=== PATIENT | female | born 1985 | race Caucasian/White ===

== ENCOUNTER 2017-07-27 16:10 | Emergency (ER) | payer OTHER ==
[~2017-07-27] VITALS: Ht 170.2 cm; Wt 84.1 kg
[2017-07-27 16:17] VITALS: TEMP 98.3
[2017-07-27] MEDS ORDERED: VALIUM 5MG T5 MG/TAB PO (17:05)
[2017-07-27 17:16] LABS: COLLECTION METHOD CLEAN CATCH
[2017-07-27 17:22] LABS: MUCOUS Present /lpf; PH 6 (5-8); URINE APPEARANCE Clear; URINE BACTERIA Rare /hpf; URINE BILIRUBIN Negative (NEGATIVE); URINE BLOOD Negative (NEGATIVE); URINE COLOR Yellow; URINE GLUCOSE Negative (NEGATIVE); URINE KETONE Negative (NEGATIVE); URINE LEUKOCYTE ESTERASE Negative (NEGATIVE); URINE NITRATE Negative (NEGATIVE); URINE PROTEIN(semi-quant) Negative (NEGATIVE); URINE RBC 0-2 /hpf; URINE UROBILINOGEN Negative (NEGATIVE)
[2017-07-27 18:19] VITALS: BP 116/83; PULSE 64
== END 2017-07-27 18:15 | disposition home or self-care (01) ==
LOC: COL.ER 16:10
PROVIDERS: Emergency Medicine
DX: H83.01 Labyrinthitis, right ear (principal)

== ENCOUNTER 2018-12-02 09:48 | Inpatient (IN) | payer OTHER ==
[2018-12-02] VITALS (48 sets, daily range): BP systolic 95–135; BP diastolic 53–87; PULSE 61–85; TEMP 97.7–98.6
[~2018-12-02] VITALS: Ht 167.6 cm; Wt 98.2 kg
[~2018-12-02 09:48] MED LIST: VALIUM 5MG T5 MG/TAB PO
--- NOTE | 2018-12-02 10:00 | NUR ---
Pt arrives on unit ambulatory with spouse. States possible SROM of light pink fluid at 0700. Pt has changed pads multiple times. Reports GFM with occasional ctx. Changed into clean gown. EFM and toco applied. VSS. Amniotest negative with SVE. SVE cl/-3 with yellow discharge noted on glove. Amniotest swiped along labia. Minimal color changed noted. Amniotest swiped along pad. Minimal color change noted. Admission assessment completed. Dr. Finnegan contacted. Pt updated on POC. Safety reviewed. No questions or concerns at this time.
[2018-12-02] MEDS ORDERED: PRENATAL MVI (10:24)
--- NOTE | 2018-12-02 10:26 | NUR ---
Pt up to birthing ball for ambulation. Reactive FHR strip obtained. 1106-Pt back to monitors.
[2018-12-02 12:11] LABS: BASO % 0.4 % (0.0-2.0); EOS # 0.1 (0.0-0.7); EOS % 1.3 % (0-4.0); GRAN % 76.5 % (42.2-75.2); HEMOGLOBIN 12.3 g/dl (12.5-16.0); LYMPH # 1.3 (1.2-3.4); LYMPH % 16.1 % (20.0-51.0); MEAN CELL VOLUME 92 fl (80.0-100.0); MEAN CORPUSCULAR HEMOGLOBIN 32 pg (27.0-31.0); MEAN CORPUSCULAR HGB CONC 35 g/dl (33.0-37.0); MEAN PLATELET VOLUME 9.7 fl (7.4-10.4); MONO # 0.4 (0.1-0.6); MONO % 5.1 % (1.7-9.3); PLATELET COUNT 200 K/mm3 (130-400); REDCELL DISTRIBUTION WIDTH-CV 12.9 % (11.5-14.5)
--- NOTE | 2018-12-02 18:15 | NUR ---
Dr. Jordan at the bedside. FHR tracing reviewed. SVE per Dr. Jordan -/-3. IUPC placed. Abdominal US done to verify vertex position.
--- NOTE | 2018-12-02 19:15 | NUR ---
FHR tracing reviewed with Dr. Jrodan. Orders to decrease pitocin to 20ml/hr received.
--- NOTE | 2018-12-02 22:54 | NUR ---
FHR decel down to 90's with slow return to baseline after peanut ball removed and position changed. SVE by this RN /. Information reviewed with Dr. Jordan.
[2018-12-03] VITALS (39 sets, daily range): BP systolic 95–154; BP diastolic 53–89; PULSE 62–93; TEMP 98.2–99.1
--- NOTE | 2018-12-03 00:22 | NUR ---
Antonia, DISTRICT HOME ECONOMICS AGENT at the bedside for epidural bolus. See anesthesia record for details.
--- NOTE | 2018-12-03 00:33 | NUR ---
0033- FHR decel to 90's. Position changed to left lateral. 0334- SVE by this RN /-1. Additional staff called to the bedside for assistance. 0335- Pitocin off. 0336- Position changed to right lateral. 0337- O2 10L via face mask started. 0040- SVE by this RN 100/0. FHR slow return to baseline.
--- NOTE | 2018-12-03 01:38 | NUR ---
O2 via face mask removed.
--- NOTE | 2018-12-03 01:40 | NUR ---
0140- Pt reports feeling lots of pressure with contractions. SVE by this RN /0. 0154- Weaver removed without complications. 0207- Pushing instructions reviewed and pushing started. .
--- NOTE | 2018-12-03 02:13 | NUR ---
IUPC removed with pushing and without complications. External toco monitor started.
--- NOTE | 2018-12-03 03:46 | NUR ---
Pitocin infusion restarted per orders.
--- NOTE | 2018-12-03 04:39 | NUR ---
4245- Spoke with Dr. Jordan for an update. We reviewed FHR tracing, ctx pattern and pushing. Dr. Jordan on his way in to evaluate. 2714- Dr. Jordan at the bedside. SVE and plan of care discussed with pt and at the bedside. 1938- C/S called. Anesthesia notified. 2374- Pt off EFM to OR via bed.
[2018-12-03] MEDS ORDERED: PERCOCET 325 MG1 TA2 PO (21:36)
[2018-12-03] MEDS ORDERED: MOTRIN 800800 MG/TAB PO (21:36)
[2018-12-04 01:25] VITALS: BP 112/61; PULSE 99; TEMP 97.7
[2018-12-04 07:45] VITALS: BP 115/73; PULSE 88; TEMP 97.7
--- NOTE | 2018-12-04 09:01 | NUR ---
Initial visit; Parents thanked Environmental Health Technician for offering congratulations and God's blessings for the of their daughter. Environmental Health Technician thanked family for choosing [facility].
[2018-12-04 16:30] VITALS: BP 111/66; PULSE 93; TEMP 97.6
[2018-12-04 23:05] VITALS: BP 118/66; PULSE 85; TEMP 97.9
--- NOTE | 2018-12-05 06:30 | NUR ---
Rests in bed, alert. Baby brought into room. Denies any needs at this time.
[2018-12-05 08:00] VITALS: BP 116/63; PULSE 83; TEMP 97.4
--- NOTE | 2018-12-05 08:00 | NUR ---
Rests in bed, alert. Holds baby. Denies any needs at this time. Questions asked and answered.
--- NOTE | 2018-12-05 10:00 | NUR ---
Rests in bed, alert. Breastfeeds baby. Ibuprofen 800 mg given as ordered.
--- NOTE | 2018-12-05 12:00 | NUR ---
Rests in bed, alert. Visiting with friend. Discharge instructions given. Verbalizes understanding.
== END 2018-12-05 12:30 | disposition home or self-care (01) | DRG 788 ==
LOC: LDRO 09:48 → LDR 10:00 → LDRO 10:01 → LDR 10:02 → LDRO 10:59 → LDR 10:59 → OB 12-03 07:30
PROVIDERS: ADMIT Obstetrics & Gynecology
PROC: 10D00Z1 Extraction of Products of Conception, Low, Open Approach (ICD-10-PCS; principal; 2018-12-03)
PROC: 0UQ90ZZ Repair Uterus, Open Approach (ICD-10-PCS; 2018-12-03)
DX: O33.9 Maternal care for disproportion, unspecified (principal); Z3A.38 38 weeks gestation of pregnancy; Z37.0 Single live birth; O99.02 Anemia complicating childbirth; D64.9 Anemia, unspecified; N99.81 Other intraoperative complications of genitourinary system; O75.89 Other specified complications of labor and delivery; O99.824 Streptococcus B carrier state complicating childbirth; O99.214 Obesity complicating childbirth; E66.9 Obesity, unspecified; O62.1 Secondary uterine inertia
CPT/HCPCS: J0690; J1580; J2175; J2250; J2370; J2400; J2405; J2540; J2590; J2795; J3010; J7120

== ENCOUNTER → 2018-12-24 | Outpatient (CLI) | payer OTHER ==
[~2018-12-24] MED LIST changes: +MOTRIN 800800 MG/TAB PO; +PERCOCET 325 MG1 TA2 PO; +PRENATAL MVI
--- NOTE | 2018-12-24 12:06 | NUR ---
Susan Bright into clinic with 3 week old Paolo for breast feeding evaluation and weight check. Paolo was born on [birth year] via c/s with a weight of 7#4 oz (3280 g). Breast feeding has complicated by the use of a breast shield on the left breast and Susan developing mastitis on the left breast last week. Susan states they stopped using the shield within the first week and states she no longer has symptoms of mastitis since starting abx treatment on 12/20/18. Susan states she feels like her left breast is not producing well as she will pump 1.5 oz from right breat after feeds and only 0.5 from the left at the most. Susan state she is pumping 1-2 times per day. Susan states Paolo is eating "all the time" and reports diapers to be WNL. 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 Prefeed weight was 7#2 oz and Paolo gained 2 oz after eating. Today, Paolo's prefeed weight as 7# 14 oz (3576 g), a gain of 12 oz in 10 days. Susan states Paolo nursed well right before coming into clinic, but put Conger to breast so latch could be evaluated. Conger to left breast for approx 10-15 min. Good latch noted, occasional swallows noted. Post feed gain only 6 g. Conger to right breast for 10-15 min with a gain of 28 g. Susan out Conger back to left breast for several minutes with no gain. Paolo then started spitting up. POC: Continue to feed ad jesse, offering both breasts. Due to mastitis most likely contiributing to decreased milk supply on the left breast, pump left breast for 10-15 min after each feeding. Monitor how often Paolo is spitting up and bring up at 1 month appointment if she feels it is getting worse. Return to clinic next week at a good feeding time so a full feeding can be observed. Questions encouraged and answered. Understanding verbalize.
== END ==
LOC: LAC 10:26
DX: Z39.1 Encounter for care and examination of lactating mother (principal)

== ENCOUNTER → 2018-12-31 | Outpatient (CLI) | payer OTHER ==
--- NOTE | 2018-12-31 15:45 | NUR ---
Pt, Susan Bright, presents to walk-in clinic with 3.5 week old baby girl, Paolo Bright for a breast feeding evaluation. Susan was dx with mastitis last week and noted her milk supply had declined on the affected side. She desires a pre and post feed weight to verify Paolo is transfering enough milk. She also reports Paolo continues to spit up after feedings, sometimes 2 and 3 times. Paolo was born on [birth year] by c/section and weighed 7#3.7oz. Last week at clinic she weighed 7#14.1oz. Today she weighs 8#5.6oz. Susan has continued to breast feed ad jesse, with pumping following on the left side after 2-3 feedings per day to help improve milk supply on that side. After independantly and bilaterally Paolo had a weight gain of 2.7oz. Pt elects to return Paolo to the right breast again and total gain after this additional time was 3.3oz. Paolo did have a few small spit ups but nothing out of the ordinary while she was here. Pt reports some are pretty large. POC: Continue ad jesse, follow with pumping as desired to help prepare for returning to work. F/U: As scheduled for well baby visit and clinic as desired. Questions invited and answered.
== END ==
LOC: LAC 10:46
DX: Z39.1 Encounter for care and examination of lactating mother (principal); Z71.89 Other specified counseling

== ENCOUNTER → 2019-01-07 | Outpatient (CLI) | payer OTHER ==
--- NOTE | 2019-01-07 12:28 | NUR ---
Susan Bright into the walk in clinic with one month old Paolo for weight check and concerns regarding clogged milk ducts. Susan and Paolo have been in the previous two weeks also, please see previous notes. Paolo was born via c/s delivery on [birth year] with a weigh of 7# 3.7 oz. Last week, Paolo's prefeed weight was noted as 8# 5.6 oz. Susan reports Paolo is nursing 8-12 times per day and diapers to be WNL. Susan is pumping 1 x per day after feeding and collects 1-2 oz. Susan verbalizes concern regarding clogged milk ducts and is worried her milk supply and Paolo's weight may be affected. Susan also notes Paolo continues to spit up regularly after feeds despite effective burping. Today, Paolo's prefeed weight was noted as 8#12.2 oz (3974 gms). A gain of 6.8 oz since last week. While in clinic, Paolo nursed from the left breast with an intake of 3.14 oz. After feeding, GREGG noted Paolo spit up several times after feeding. LC discussed management of clogged ducts with Susan and discussed that she may have slight over supply that could be contributing to the clogged ducts. POC: Continue to feed ad jesse, only offer one breast if Paolo starts spitting up after the first breast, then alternate breasts with each feeding. Use warm compresses before feedings and gentle massage of the breast to relieve clogged ducts. Verbal education given on use of Lecithin. Discussed s/sx of mastitis to watch out for. Verbalize concerns regarding regular spitting up with physician at one month appointment. Return to clinic with further concerns. Questions encouraged and answered. Understanding verbalized.
== END ==
LOC: LAC 10:31
DX: Z39.1 Encounter for care and examination of lactating mother (principal); Z71.89 Other specified counseling

== ENCOUNTER → 2019-02-18 | Outpatient (CLI) | payer OTHER ==
--- NOTE | 2019-02-18 11:53 | NUR ---
Susan Bright into walk in clinic with 2.5 month old Paolo for weight check. Paolo's weight on 12/03/18 was 7# 3.7 oz. Today's weight was 10#13.4 oz, a gain of 7.4 oz, an average of 0.7 oz/day, from 2 month appointment on 02/07/19 (Paolo was 10# 6 oz, per Susan's report). Susan states that Paolo nurses often, but feels some of this may be comfort nursing and reports diapers to be WNL. Paolo occasionally receives one 3 oz bottle of formula on days Susan works. Susan has no concerns with milk supply or latching issues at this time. Questions invited and answered. No further concerns at this time.
== END ==
LOC: LAC 11:22
DX: Z39.1 Encounter for care and examination of lactating mother (principal); Z71.89 Other specified counseling

== ENCOUNTER → 2019-02-25 | Outpatient (CLI) | payer OTHER ==
--- NOTE | 2019-02-25 12:49 | NUR ---
Pt, Susan Bright, into clinic with 11 week old Paolo for weight check and to evaluate milk transfer. Paolo was born on [birth year] with a weight of 7# 3.7 oz. Last week, Paolo's weight was noted as 10# 13.4 oz. Today's prefeed weight was noted as 10# 15.9 oz, a gain of only 2.5 oz in the last week. Susan states Paolo nurses 12+ times per day and that Paolo cluster fed through the weekend. Susan also states that Paolo rarely appears satisfied after feeds. Susan states Paolo takes one 3 oz bottle on days she works. Susan states she is not regularly pumping. While in clinic, Paolo nursed bilaterally and took only 38 mls. POC: Start using 3 step feeding method. Start pumping after and supplement with 2 oz EBM or formula after each feeding to increase intake to an apppropriate amount and keep her satisfied longer than 1-2 hours. Increase bottle amount that Paolo gets while Susan is at work to 4-5 oz. Susan states she will also restart herbal supplement for increasing milk supply. Quesions invited and answered. Understanding verbalized. Susan will bring Paolo in next week for weight check and follow up.
== END ==
LOC: OLC 10:16
DX: Z39.1 Encounter for care and examination of lactating mother (principal); Z71.89 Other specified counseling

== ENCOUNTER → 2019-03-04 | Outpatient (CLI) | payer OTHER ==
--- NOTE | 2019-03-04 12:58 | NUR ---
Susan Kaila into walk in clinic with three month old Paolo. Last week while in clinic, it was identified that most likely Susan had a low milk supply which was contributing to Paolo wanting to nurse 12+ times per day and having low weight gain. Since last week, Susan has been using the three step feeding method of feed/pumping/supplementing. Susan states Paolo is nursing 6-8 times per day, taking a 2-3 oz bottle of EBM or formula after 4-6 of these feedings. Susan states she also has started pumping 3 times per day and is expressing 45ml-90 ml total with each pumping session. Last week, Paolo's prefeed weight was noted as 10# 15.9 oz, a gain of 2.5 oz from the previous week. Today's prefeed weight was noted as 11#14.7 oz (5406 gms), a gain of 15 oz in the last week since starting the 3 step feeding method. While in clinic today, Paolo nursed bilaterally with a gain of 49 mls/ 1.75 oz), then took 90 mls of formula. Susan states she is comfortable with the mixed feeding of breast feeding and supplementation and she feels Paolo is more satisfied and is sleeping better. POC: Continue feeding ad jesse, supplementing 1-3 oz EMB or formula after breast feeding according to Paolo's cues. Continue to work on milk supply by pumping several times through out the day if unable to pump after each feeding. Questions invited and answered. Understanding verbalized.
== END ==
LOC: LAC 11:54
DX: Z39.1 Encounter for care and examination of lactating mother (principal)

== ENCOUNTER → 2019-03-11 | Outpatient (CLI) | payer OTHER ==
--- NOTE | 2019-03-11 12:26 | NUR ---
Susan Kaila in to walk-in clinic with 3 month old Paolo for weight check. Three weeks ago, Susan started using 3 step feeding method of breast feeding, supplementing, and pumping after it was recognized that her milk supply was low and Paolo was having inadequete weight gain. Last week, Paolo had a gain of 15 oz. This week Paolo's weight was 12 # 11.9 oz (5780 gm), a gain of 13.3 oz (374 gms) from the previous week. Susan states she continues to pump approx 3 times per day and Paolo is eating 7-8 times per day. Paolo receives 2 oz of EBM or formula after some of her feedings based on feeding cues. Susan states she is comfortable with their current feeding plan and feels Paolo is sleeping better and is more alert and active when she is awake. POC: Continue to feed ad jesse, try decreasing supplement to 1 oz to see if Paolo is satisfied, otherwise offer the other 1 oz. Continue to pump to help maintain and/or increase supply. Return to clinic as desired for weight check or with other breast feeding concerns. Questions invited and answered. Understanding verbalized.
== END ==
LOC: LAC 11:06
DX: Z39.1 Encounter for care and examination of lactating mother (principal); Z71.89 Other specified counseling

== ENCOUNTER → 2019-03-18 | Outpatient (CLI) | payer OTHER ==
--- NOTE | 2019-03-18 11:24 | NUR ---
Susan Bright into clinic with 3.5 month old Paolo for weight check. Paolo was born on [birth year] with a weight of 7# 3.7 oz. Susan has struggled with low milk supply and has been working on increasing her supply by pumping and taking oral supplements. Last week, Paolo's prefeed weight was 12#11.9 oz (5780 gm). This week her weight was noted as 13# 2.8 oz, a gain of 6.9 oz in the last week. Susan states she has decreased supplement amounts to 1 oz after ; however, she states Paolo sometimes is still giving feeding cues so will take 2 oz. Susan states she is pumping 3 x per day and she is pumping 1-2 oz after feeds and up to 4 oz when she is pumping to replace a BF. Paolo is nursing approx 8 times per day and diapers are WNL. Susan attempted to feed Paolo while in clinic but Paolo was not interested. POC: Continue to feed ad jesse. Supplement based on feeding cues. Continue to pump to work on increasing supply.
== END ==
LOC: LAC 10:44
DX: Z39.1 Encounter for care and examination of lactating mother (principal); Z71.89 Other specified counseling

== ENCOUNTER 2021-03-25 07:54 | Inpatient (IN) | payer OTHER ==
[~2021-03-25] VITALS: Ht 167.6 cm; Wt 99.5 kg
[2021-03-25] VITALS (17 sets, daily range): BP systolic 105–149; BP diastolic 60–115; PULSE 61–86; TEMP 97.8–98.1
[2021-03-25] MEDS ORDERED: TIROSINT100 MC1 PO (10:51)
[2021-03-25] MEDS ORDERED: PROFERRIN ES12 MG PO (10:52)
[2021-03-25] MEDS ORDERED: PERCOCET 325 MG1 TA2 PO ×2 (10:58→17:12)
[2021-03-25] MEDS ORDERED: MOTRIN 800800 MG/TAB PO ×2 (10:58→17:12)
[2021-03-25 11:06] LABS: BASO % 0.1 % (0.0-2.0); EOS # 0.1 K/mm3 (0.0-0.7); EOS % 1.3 % (0-4.0); GRAN # 6.5 K/mm3 (1.4-6.5); GRAN % 76.8 % (42.2-75.2); HEMATOCRIT 34.4 % (37.0-47.0); HEMOGLOBIN 12.1 g/dl (12.5-16.0); LYMPH # 1.3 K/mm3 (1.2-3.4); LYMPH % 14.9 % (20.0-51.0); MEAN CELL VOLUME 92 fl (80.0-100.0); MEAN CORPUSCULAR HEMOGLOBIN 32 pg (27.0-31.0); MEAN CORPUSCULAR HGB CONC 35 g/dl (33.0-37.0); MEAN PLATELET VOLUME 9.2 fl (7.4-10.4); MONO # 0.5 K/mm3 (0.1-0.6); MONO % 6.1 % (1.7-9.3); PLATELET COUNT 187 K/mm3 (130-400); RED BLOOD COUNT 3.73 M/mm3 (4.10-5.30); REDCELL DISTRIBUTION WIDTH-CV 12.8 % (11.5-14.5)
[2021-03-26 08:15] VITALS: BP 125/65; PULSE 87; TEMP 98.4
--- NOTE | 2021-03-26 13:07 | NUR ---
stopped by but nothing needed at this time.
[2021-03-26 17:33] VITALS: BP 127/74; PULSE 68; TEMP 97.8
[2021-03-26 20:57] VITALS: BP 119/82; PULSE 82; TEMP 97.7
[2021-03-27 08:45] VITALS: BP 129/60; PULSE 82; TEMP 98
== END 2021-03-27 15:20 | disposition home or self-care (01) | DRG 788 ==
LOC: LDR 07:54 → OB 10:09 → LDR 13:40 → OB 03-27 15:20
PROVIDERS: ADMIT Obstetrics & Gynecology
PROC: 10D00Z1 Extraction of Products of Conception, Low, Open Approach (ICD-10-PCS; principal; 2021-03-25)
DX: O34.211 Maternal care for low transverse scar from previous cesarean delivery (principal); O99.214 Obesity complicating childbirth; E66.9 Obesity, unspecified; Z3A.39 39 weeks gestation of pregnancy; Z37.0 Single live birth; O99.284 Endocrine, nutritional and metabolic diseases complicating childbirth; E03.9 Hypothyroidism, unspecified; G43.909 Migraine, unspecified, not intractable, without status migrainosus; O75.89 Other specified complications of labor and delivery
CPT/HCPCS: J0690; J1885; J2370; J2405; J2590; J7120